=== PATIENT | female | born 1990 | race African-American/Black ===

== ENCOUNTER 2022-03-25 18:48 | Emergency (ER) | payer SELFPAY ==
[~2022-03-25] VITALS: Ht 172.7 cm; Wt 65.8 kg
[2022-03-25 19:43] LABS: HEMATOCRIT 41.3 % (31.2-41.9); MEAN CORPUSCULAR VOLUME 85.6 fL (75.5-95.3); PLATELET COUNT (AUTO) 347 K/uL (179-408)
[2022-03-25 20:01] LABS: CARBON DIOXIDE 30 mmol/L (21-32); CHLORIDE 100 mmol/L (98-107); CREATININE 0.7 mg/dL (0.6-1.3); GLUCOSE 79 mg/dL (74-106); POTASSIUM 3.5 mmol/L (3.5-5.1); UREA NITROGEN, BLOOD 7 mg/dL (7-18)
[2022-03-25 20:05] LABS: ETHANOL < 3 MG/DL (0-0)
--- NOTE | 2022-03-25 20:12 | NUR ---
PATIENT RESTING IN BED, REQUESTED MEAL OKAY BY TELLY NGUYEN AND GIVEN AT THIS TIME. INFORM PATIENT OF NEED FOR URINE SPECIMEN, CUP PROVIDED AT THIS TIME.
[2022-03-25 20:15] LABS: ALANINE AMINOTRANSFERASE 41 U/L (14-59); ALKALINE PHOSPHATASE 109 U/L (50-136); ASPARTATE AMINOTRANSFERASE 47 U/L (15-37); BILIRUBIN,DIRECT 0.1 mg/dL (0.0-0.2); BILIRUBIN,TOTAL 0.3 mg/dL (0.2-1.0); THYROID STIMULATING HORMONE 2.433 mIU/mL (0.358-3.740); TOTAL PROTEIN, SERUM 8.1 g/dL (6.4-8.2)
--- NOTE | 2022-03-25 20:16 | NUR ---
URINE HAS BEEN COLLECTED AND SENT TO LAB, PATIENT SITTING UP AT BEDSIDE EATING MEAL, NO S/S OF ANY DISTRESS NOTED.
[2022-03-25 20:20] LABS: ACETAMINOPHEN < 2.0 ug/mL (10-30)
[2022-03-25 20:26] LABS: *BILIRUBIN,URIN NEGATIVE (NEGATIVE); *CLARITY,URINE CLEAR (CLEAR); *COLOR,URINE YELLOW (YELLOW); *KETONES,URINE NEGATIVE (NEGATIVE); LEUKOCYTE ESTERASE ,URINE NEGATIVE (NEGATIVE); NITRITE, URINE POSITIVE (NEGATIVE); UGLUCOSE NEGATIVE (NEGATIVE)
[2022-03-25 20:29] LABS: *URINE HCG, QUAL NEG (NEGATIVE)
[2022-03-25 20:30] LABS: *BLOOD, URINE TRACE (NEGATIVE)
[2022-03-25 20:37] LABS: *AMPHETAMINE, URINE POSITIVE (NEGATIVE); *CANNABINOID, URINE NEGATIVE (NEGATIVE); *COCCAINE, URINE NEGATIVE (NEGATIVE); *OPIATE, URINE NEGATIVE (NEGATIVE); *PHENCYCLIDINE SCREEN,URINE NEGATIVE (NEGATIVE)
--- NOTE | 2022-03-25 21:29 | NUR ---
PATIENT ALERT, TALKS BUT UNABLE TO UNDERSTAND AT THIS TIME. NO S/S OF ANY DISTRESS NOTED, INFORMED OF PLAN OF CARE. PATIENT NOTED TO HAVE SUDDEN JERKY MOVEMENTS, UNLABORED RESPIRATIONS, ABD SOFT NON TENDER TO PALPATION, SKIN WARM AND DRY RIGHT POSTERIOR THIGH HAS OPEN WOUNDS, NO DRAINAGE NOTED. PATIENT AWAITING MEDICAL CLEARENCE, WILL CONTINUE TO MONITOR.
--- NOTE | 2022-03-25 22:38 | NUR ---
PATIENT SLEEPING AT THIS TIME, NO S/S OF ANY DISTRESS,PAIN OR DISCOMFORT AT THIS TIME.
--- NOTE | 2022-03-26 00:03 | NUR ---
Resting in bed, no s/s of any pain or discomfort noted, side rails remain up.
--- NOTE | 2022-03-26 00:27 | NUR ---
Patient awake now, talking to self, will continue to monitor.
--- NOTE | 2022-03-26 00:36 | NUR ---
TELLY MD at bedside for exam.
[2022-03-26 01:56] LABS: BACTERIA,URINE MODERATE /HPF (NONE SEEN); RBC,URINE 0-3 /HPF (0-3); SQUAMOUS EPITHELIAL CELL,UR FEW /HPF (NONE SEEN); WBC,URINE 0-3 /HPF (0-3)
--- NOTE | 2022-03-26 02:31 | NUR ---
patient sleeping at this time. no change in primary assessment.
--- NOTE | 2022-03-26 03:44 | NUR ---
Continues to rest without any c/o pain or discomfort.
--- NOTE | 2022-03-26 04:30 | NUR ---
AT BEDSIDE FOR RE-EVAL.
--- NOTE | 2022-03-26 04:44 | NUR ---
Patient awake, unable to vs due to frequent movement, several attempts made temp: 97.8- RESP:18. No distress noted.
--- NOTE | 2022-03-26 05:02 | NUR ---
HR:68 O2 SAT: 100% UNABLE TO GET B/P AT THIS TIME.
--- NOTE | 2022-03-26 07:18 | NUR ---
Cat Scan Tech assumes care: patient is resting comfortably under the blankets, easily arousable, confuse, not following simple commands, NOT MEDICALLY CLEARED YET for psych second worker to evaluate per ER doctor Dr Randolph, pending CT scan of the head.
--- NOTE | 2022-03-26 07:40 | NUR ---
Patient is in CT scan department.
--- NOTE | 2022-03-26 07:50 | NUR ---
Per technology officer report Raymond, "Patient is all over the place. The scan has many motion artifact." Dr Randolph notified.
--- NOTE | 2022-03-26 08:01 | NUR ---
Patient is alert, awake, oriented to name and place, disoriented to time and situation. Patient is calm and occassionally follows simple commands now. "Can I use the bathroom?" per patient's verbalization. Patient ambulated to the bathroom by nurses' station from room ER-5A.
--- NOTE | 2022-03-26 08:03 | NUR ---
PT is medically cleared by Dr Randolph. Called [employer] and left message for [employer]. Awaiting call back.
--- NOTE | 2022-03-26 08:07 | NUR ---
Breakfast tray at bedside.
--- NOTE | 2022-03-26 08:22 | NUR ---
ER social service worker Louise is at bedside.
--- NOTE | 2022-03-26 08:30 | NUR ---
Social Work consult was requested for a patient in the emergency room for mental health, homeless and substance abuse resources. Patient is a 32-year-old black female. Patient presents with anxious mood and congruent affect. Patient appears disheveled and bizarre, and her speech is pressured and tangential. Patient states her primary contact is Russ Hyde ([phone]). Patient states she is homeless, and DALI provided the patient with homeless resources for [facility] [address] [place] [address] ([phone]) and [facility] [address] [facility] [address] ([phone]). DALI gave resources for [address] [address]. Patient signed the homeless waiver, and a copy was placed in the chart. Patient states she has a history of substance abuse, and the toxicology report was positive for amphetamines. DALI provided the patient with substance abuse resources for [facility] [address] [facility] [address] ([phone]), [facility] [address] [facility] [address] ([phone]), and [facility] [address] [facility] [address] ([phone]). Patient appears unmotivated for treatment. Patient states she has a history of depression. Patient denies suicidal or homicidal ideation. Patient denies auditory or visual hallucinations. DALI provided the patient with the mental health resource for [facility] [address] [place] [address] ([phone]). Patients plan for discharge is to follow up with making her own arrangements for a living arrangement using the resources provided.
--- NOTE | 2022-03-26 08:49 | NUR ---
Security assistance requested 2/2 patient pushed MD.
--- NOTE | 2022-03-26 08:59 | NUR ---
Patient wants to leave, denies SI or HI. [email or web address]. Security assistance was called. ER social work supervisor Louise is also at bedside.
--- NOTE | 2022-03-26 09:03 | NUR ---
Security officers are at bedside.
--- NOTE | 2022-03-26 09:08 | NUR ---
Patient is AOx3, denies suicidal or homicidal thoughts at this time. Patient wants to leave. MD is at bedside. Verbal discharge instructions was given. Patient verbalizes understanding of instructions. Patient is ambulatory with steady gait. Patient refuses offer of senior care placement. A list of available shelters in surrounding area provided and patient refuses to sign the homeless waiver form.
[2022-03-26] MEDS ORDERED: HALOPERIDOL LACTATE 5 MG/1 ML VIAL ONE (09:58)
[2022-03-26] MEDS ORDERED: LORAZEPAM 2 MG/1 ML VIAL ONE (09:59)
== END 2022-03-26 09:08 | disposition home or self-care (01) ==
LOC: ER 18:51
DX: F29 Unspecified psychosis not due to a substance or known physiological condition (principal); D72.829 Elevated white blood cell count, unspecified; Z20.822 Contact with and (suspected) exposure to COVID-19; J45.909 Unspecified asthma, uncomplicated; F15.90 Other stimulant use, unspecified, uncomplicated; Z59.00 Homelessness unspecified
CPT/HCPCS: 36415; 70450; 71045; 84443; 84703; 85025; 93005; A4663; G0480; J1630; J2060